=== PATIENT | female | born 1960 | race Caucasian/White ===

== ENCOUNTER 2017-02-27 21:23 | Observation (INO) | payer SELFPAY ==
[2017-02-27] MEDS ORDERED: ASPIRIN 81 MG TABLET, CHEWABLE PO ONE (22:18)
[2017-02-27] MEDS ORDERED: NITROGLYCERIN 0.4 MG/TAB 25 TAB/BOTTLE SL PRN (22:18)
--- NOTE | 2017-02-27 22:53 | RADIOLOGY REPORT (SQ) ---
EXAM DESCRIPTION: CHEST SINGLE VIEW COMPLETED DATE/TIME: 02/27/2017 10:28 pm REASON FOR STUDY: chest pain COMPARISON: None. EXAM PARAMETERS: NUMBER OF VIEWS: One view. TECHNIQUE: Single frontal radiographic view of the chest acquired. RADIATION DOSE: NA LIMITATIONS: None. FINDINGS: LUNGS AND PLEURA: No opacities, masses or pneumothorax. No pleural effusion. MEDIASTINUM AND HILAR STRUCTURES: No masses. Contour normal. HEART AND VASCULAR STRUCTURES: Heart normal in size. Normal vasculature. BONES: No acute findings. HARDWARE: None in the chest. OTHER: No other significant finding. IMPRESSION: NO ACUTE RADIOGRAPHIC FINDING IN THE CHEST. TECHNICAL DOCUMENTATION: JOB ID: [id number] [place]-72 2010 [employer]- All Rights Reserved
[2017-02-27 23:18] LABS: ABSOLUTE BASOPHILS # (AUTO) 0.1 10^3/uL (0.0-0.2); ABSOLUTE EOSINOPHILS # (AUTO) 0.2 10^3/uL (0.0-0.6); ABSOLUTE LYMPHOCYTES (AUTO) 3.4 10^3/uL (0.5-4.7); ABSOLUTE MONOCYTES (AUTO) 0.7 10^3/uL (0.1-1.4); ABSOLUTE NEUT (AUTO) 10.4 10^3/uL (1.7-8.2); BASOPHILS % (AUTO) 0.4 % (0-2); EOSINOPHILS % (AUTO) 1.3 % (0-6); HEMATOCRIT 38.3 % (36.0-47.0); HEMOGLOBIN 13.4 g/dL (12.0-15.5); HGB HCT DIFFERENCE 1.9; LYMPHOCYTES % (AUTO) 23.1 % (13-45); MEAN CORPUSCULAR HEMOGLOBIN 28.8 pg (27.0-33.4); MEAN CORPUSCULAR VOLUME 82 fl (80-97); RED BLOOD COUNT 4.66 10^6/uL (3.72-5.28); RED CELL DISTRIBUTION WIDTH 13.9 % (11.5-14.0); SEGMENTED NEUTROPHILS % (AUTO) 70.2 % (42-78); WHITE BLOOD COUNT 14.8 10^3/uL (4.0-10.5)
[2017-02-27 23:31] LABS: ALANINE AMINOTRANSFERASE 63 U/L (9-52); ALBUMIN 3.8 g/dL (3.5-5.0); ALKALINE PHOSPHATASE 170 U/L (38-126); ANION GAP 9 (5-19); ASPARTATE AMINO TRANSFERASE 121 U/L (14-36); BILIRUBIN,DIRECT 0.6 mg/dL (0.0-0.4); BILIRUBIN,TOTAL 0.9 mg/dL (0.2-1.3); BLOOD UREA NITROGEN 8 mg/dL (7-20); CALCIUM 9.5 mg/dL (8.4-10.2); CARBON DIOXIDE 27 mmol/L (22-30); CHLORIDE 107 mmol/L (98-107); CREATINE KINASE 25 U/L (30-135); CREATININE RESULT 0.69 mg/dL (0.52-1.25); GLUCOSE 100 mg/dL (75-110); POTASSIUM 3.8 mmol/L (3.6-5.0); SODIUM 143.3 mmol/L (137-145); TOTAL PROTEIN 6.2 g/dL (6.3-8.2)
[2017-02-27 23:43] LABS: CREATINE KINASE MB 0.34 ng/mL (<4.55)
[2017-02-27 23:51] LABS: TROPONIN I < 0.012 ng/mL
--- NOTE | 2017-02-27 23:56 | ER Document Report ---
ED General - General Chief Complaint: Chest Pain Stated Complaint: CHEST PAIN Time Seen by Provider: 02/27/17 22:18 Mode of Arrival: Ambulatory Information source: Patient Notes: 56 yr old female presents iwth complaints of chest pain. pt denies any cardiac history or family specific history of cardiac concerns but she does not know her mother's side. Patient notes she had chest pain about 10 or so years ago was found to have a spot on her heart but she never followed up for this. Tonight she had sudden chest pain at 8 PM rating to her neck and arm TRAVEL OUTSIDE OF THE [place] IN LAST 30 DAYS: No - HPI Onset: Just prior to arrival Onset/Duration: Sudden Quality of pain: Sharp Severity: Mild Pain Level: 1 Associated symptoms: Chest pain Exacerbated by: Denies Relieved by: Denies Similar symptoms previously: No Recently seen / treated by doctor: No Past Medical History - Social History Smoking Status: Former Smoker Cigarette use (# per day): No Chew tobacco use (# tins/day): No Smoking Education Provided: No Frequency of alcohol use: Occasional Drug Abuse: None Family History: Reviewed & Not Pertinent Patient has suicidal ideation: No Patient has homicidal ideation: No Renal/ Medical History: Denies: Hx Peritoneal Dialysis Past Surgical History: Reports: Hx Cholecystectomy Review of Systems - Review of Systems Notes: REVIEW OF SYSTEMS: CONSTITUTIONAL : Denies fever, chills, or sweats. Denies recent illness. EENT: Denies eye, ear, throat, or mouth pain or symptoms. Denies nasal or sinus congestion or discharge. Denies throat, tongue, or mouth swelling or difficulty swallowing. CARDIOVASCULAR: Admits to chest pain RESPIRATORY: Denies cough, cold, or chest congestion. Denies shortness of breath, difficulty breathing, or wheezing. GASTROINTESTINAL: Denies abdominal pain or distention. Denies nausea, vomiting , or diarrhea. Denies blood in vomitus, stools, or per rectum. Denies black, tarry stools. Denies constipation. GENITOURINARY: Denies difficulty urinating, painful urination, burning, frequency, blood in urine, or discharge. FEMALE GENITOURINARY: Denies vaginal bleeding, heavy or abnormal periods, irregular periods. Denies vaginal discharge or odor. MUSCULOSKELETAL: Denies back or neck pain or stiffness. Denies joint pain or swelling. SKIN: Denies rash, lesions or sores. HEMATOLOGIC : Denies easy bruising or bleeding. LYMPHATIC: Denies swollen, enlarged glands. NEUROLOGICAL: Denies confusion or altered mental status. Denies passing out or loss of consciousness. Denies dizziness or lightheadedness. Denies headache. Denies weakness or paralysis or loss of use of either side. Denies problems with gait or speech. Denies sensory loss, numbness, or tingling. Denies seizures. PSYCHIATRIC: Denies anxiety or stress. Denies depression, suicidal ideation, or homicidal ideation. ALL OTHER SYSTEMS REVIEWED AND NEGATIVE. PHYSICAL EXAMINATION: GENERAL: Well-appearing, well-nourished and in no acute distress. HEAD: Atraumatic, normocephalic. EYES: Pupils equal round and reactive to light, extraocular movements intact, conjunctiva are normal. ENT: Nares patent, oropharynx clear without exudates. Moist mucous membranes. NECK: Normal range of motion, supple without lymphadenopathy LUNGS: Breath sounds clear to auscultation bilaterally and equal. No wheezes rales or rhonchi. HEART: Regular rate and rhythm without murmurs ABDOMEN: Soft, nontender, nondistended abdomen. No guarding, no rebound. No masses appreciated. Female : deferred Musculoskeletal: Normal range of motion, no pitting or edema. No cyanosis. NEUROLOGICAL: Cranial nerves grossly intact. Normal speech, normal gait. Normal sensory, motor exams PSYCH: Normal mood, normal affect. SKIN: Warm, Dry, normal turgor, no rashes or lesions noted. Dictation was performed using [employer] voice recognition software Physical Exam - Vital signs Vitals: Temp Pulse Resp BP Pulse Ox 97.6 F 85 18 135/57 H 100 02/27/17 21:33 02/27/17 21:33 02/27/17 21:33 02/27/17 21:33 02/27/17 21:33 Course - Re-evaluation Re-evalutation: 02/28/17 03:37 Percent cardiac enzymes are negative, EKG noted no significant abnormality, given that the patient is having chest pain I will observe overnight for further evaluation and care - Vital Signs Vital signs: Temp Pulse Resp BP Pulse Ox 97.6 F 85 14 129/67 H 99 02/27/17 21:33 02/27/17 21:33 02/28/17 01:01 02/28/17 01:01 02/28/17 01:01 - Laboratory Result Diagrams: 02/27/17 22:55 02/27/17 22:55 Laboratory results interpreted by me: 02/27/17 02/27/17 02/27/17 22:55 22:55 22:55 WBC 14.8 H Absolute Neutrophils 10.4 H Direct Bilirubin 0.6 H AST 121 H ALT 63 H Alkaline Phosphatase 170 H Creatine Kinase 25 L Total Protein 6.2 L TSH < 0.01 L - Diagnostic Test Radiology reviewed: Image reviewed, Reports reviewed - No acute abnormality - EKG Interpretation by [facility] EKG shows normal: Sinus rhythm, [place], Intervals, QRS Complexes Discharge - Discharge Clinical Impression: Chest pain Qualifiers: Chest pain type: unspecified Qualified Code(s): R07.9 - Chest pain, unspecified Condition: Stable Disposition: ADMITTED OBSERVATION Admitting Provider: Hospitalist Unit Admitted: Telemetry
[2017-02-28] MEDS ORDERED: NITROGLYCERIN/D5W 50 MG/250 ML RTUINJ IV PRN (00:05)
[2017-02-28] MEDS ORDERED: DIAZEPAM 5 MG TABLET PO PRN ×2 (00:05→10:30)
[2017-02-28] MEDS ORDERED: TRAZODONE HCL 50 MG TABLET PO ONE (05:00)
[2017-02-28 05:50] LABS: CREATINE KINASE MB 0.31 ng/mL (<4.55)
[2017-02-28 05:54] LABS: TROPONIN I < 0.012 ng/mL
--- NOTE | 2017-02-28 06:20 | PDOC H&P ---
History of Present Illness Admission Date/PCP: 02/28/17 00:06 Patient complains of: Left-sided chest pain History of Present Illness: SHANNAN HOLLIS is a 56 year old female with a past medical history who would been her usual state of health until approximately 4 hours prior to presentation developing episodes of sharp retrosternal chest pain with radiation to the left arm associated with palpitations. She is unable to identify alleviating factors however exertion and standing makes it worse. She is referred to the hospitalist for admission. Denies nausea vomiting or shortness of breath. Patient admits heat intolerance, insomnia and uncontrolled anxiety over the last month. She denies regular medications with exception to [id number] supplements, no energy drinks or weight loss supplements. Past Medical History Cardiac Medical History: Reports: None Pulmonary Medical History: Reports: None EENT Medical History: Reports: None Neurological Medical History: Reports: None Endocrine Medical History: Reports: None Renal/ Medical History: Reports: None Malignancy Medical History: Reports: None GI Medical History: Reports: None Musculoskeltal Medical History: Reports: None Skin Medical History: Reports: None Psychiatric Medical History: Reports: None Traumatic Medical History: Reports: None Hematology: Reports: None Infectious Medical History: Reports: None Past Surgical History Past Surgical History: Reports: Cholecystectomy Social History Information Source: Patient Smoking Status: Former Smoker Frequency of Alcohol Use: None Hx Recreational Drug Use: No Drugs: None - Advance Directive Resuscitation Status: Full Code Family History Family History: Other - Parkinson's disease with Lewy body dementia Parental Family History Reviewed: Yes Children Family History Reviewed: Yes Sibling(s) Family History Reviewed.: Yes Medication/Allergy Allergies/Adverse Reactions: No Known Allergies Allergy (Unverified 02/28/17 04:00) Review of Systems Constitutional: PRESENT: as per HPI, fatigue. ABSENT: fever(s), headache(s), night sweats, weakness Eyes: ABSENT: visual disturbances Ears: ABSENT: hearing changes Cardiovascular: PRESENT: as per HPI, chest pain, palpitations Respiratory: ABSENT: cough, hemoptysis Gastrointestinal: ABSENT: abdominal pain, constipation, diarrhea, hematemesis, hematochezia, nausea, vomiting Genitourinary: ABSENT: dysuria, hematuria Musculoskeletal: PRESENT: muscle weakness. ABSENT: joint swelling Integumentary: ABSENT: rash, wounds Neurological: ABSENT: abnormal gait, abnormal speech, confusion, dizziness, focal weakness, syncope Psychiatric: PRESENT: anxiety Endocrine: PRESENT: as per HPI, heat intolerance. ABSENT: cold intolerance, polydipsia, polyphagia, polyuria Hematologic/Lymphatic: ABSENT: easy bleeding, easy bruising Physical Exam Vital Signs: Temp Pulse Resp BP Pulse Ox 98.8 F 75 15 126/58 H 99 02/28/17 04:50 02/28/17 04:50 02/28/17 04:50 02/28/17 04:50 02/28/17 04:50 Intake & Output 02/26/17 02/27/17 02/28/17 11:59 11:59 11:59 Weight 60 kg General appearance: PRESENT: cooperative, mild distress, thin Head exam: PRESENT: atraumatic, normocephalic Eye exam: PRESENT: conjunctiva pink, EOMI, PERRLA. ABSENT: scleral icterus Ear exam: PRESENT: normal external ear exam Mouth exam: PRESENT: moist, tongue midline Neck exam: ABSENT: carotid bruit, JVD, lymphadenopathy, thyromegaly Respiratory exam: PRESENT: clear to auscultation riky. ABSENT: rales, rhonchi, wheezes Cardiovascular exam: PRESENT: RRR, other - Shoulder and chest wall with reproducible pain. ABSENT: diastolic murmur, rubs, systolic murmur Pulses: PRESENT: normal dorsalis pedis pul Vascular exam: PRESENT: normal capillary refill GI/Abdominal exam: PRESENT: normal bowel sounds, soft. ABSENT: distended, guarding, mass, organolmegaly, rebound, tenderness Rectal exam: PRESENT: deferred Extremities exam: PRESENT: full ROM. ABSENT: calf tenderness, clubbing, pedal edema Neurological exam: PRESENT: alert, awake, oriented to person, oriented to time, oriented to situation, CN II-XII grossly intact Psychiatric exam: PRESENT: anxious Focused psych exam: PRESENT: restlessness Skin exam: PRESENT: dry, intact, warm. ABSENT: cyanosis, rash Results Laboratory Results: 02/28/17 04:46 CK-MB (CK-2) 0.31 Troponin I < 0.012 Impressions: Chest X-Ray 02/27/17 22:18 IMPRESSION: NO ACUTE RADIOGRAPHIC FINDING IN THE CHEST. Assessment & Plan - Diagnosis (1) Chest pain Qualifiers: Chest pain type: unspecified Qualified Code(s): R07.9 - Chest pain, unspecified Is this a current diagnosis for this admission?: Yes Plan: Atypical chest pain though the patient's pain is atypical there are multiple risk factors for coronary artery disease and subsequently will observe and evaluation of acute coronary syndrome versus coronary artery disease with anginal equivalents. Cardiac monitoring blood pressure Q6 hours ,TSH, lipid profile, serial cardiac enzymes and consider cardiac stress test (2) Anxiety Is this a current diagnosis for this admission?: Yes Plan: Trial of trazodone, evaluate thyroid function (3) Hyperthyroidism Is this a current diagnosis for this admission?: Yes Plan: Evaluate thyroid function, monitor heart rate, consider propanolol - Time Time Spent: 50 to 70 Minutes - Inpatient Certification Medical Necessity: Need Close Monitoring Due to Risk of Patient Decompensation
--- NOTE | 2017-02-28 08:09 | EKG REPORT ---
SEVERITY:- ABNORMAL ECG - SINUS RHYTHM BRIANNA, CONSIDER BIATRIAL ABNORMALITIES : Confirmed by: Mason Denise MD 28-Feb-2017 08:09:31
[2017-02-28] MEDS ORDERED: DOCUSATE SODIUM 100 MG CAPSULE PO SCH (10:00)
[2017-02-28 11:48] LABS: CREATINE KINASE MB 0.34 ng/mL (<4.55)
[2017-02-28 11:51] LABS: TROPONIN I < 0.012 ng/mL
[2017-02-28] MEDS ORDERED: REGADENOSON INJ 0.4 MG/5 ML DISP.SYRIN IV ONE (13:34)
[2017-02-28] MEDS ORDERED: AMINOPHYLLINE INJ/PF 250 MG/10 ML SDV IV ONE (13:34)
--- NOTE | 2017-02-28 13:36 | DRAGON STRESS TEST REPORT ---
INTRAVENOUS LEXISCAN CARDIOLITE STRESS TEST USING SINGLE PHOTON EMMISION COMPUTERIZED TOMOGRAPHIC. DATE OF PROCEDURE: February 28, 2017 INDICATION : Chest pain CARDIAC RISK FACTORS: Dyslipidemia RESTING EKG: Sinus rhythm, no baseline ST-T wave changes noted STRESS EKG: No significant changes noted with LexiScan bolus REASON FOR TERMINATION: Protocol. PROCEDURE REPORT: Baseline heart rate 72 beats per minute with blood pressure of 142/82. Patient had no significant complaints. Heart rate at 2 minutes post bolus 97 with a blood pressure of 150/72. 3 minutes post bolus heart rate 94 with blood pressure of 140/78. No significant EKG changes were noted. Patient had no significant complaints during the procedure or postprocedure. Patient injected with Aminophyllin 75 mg at 3 minutes or later after Lexiscan bolus. CONCLUSIONS: Normal EKG and hemodynamic response to IV LexiScan. NUCLEAR DATA: At rest the patient was given 9.90 millicuries of technetium 99 sestamibi injected intravenously. As per protocol rest gated SPECT images were obtained. Subsequently the patient was given intravenous LexiScan at a dose of 0.4 mg in 5 mL intravenously, followed by flush with normal saline. Subsequently the stress dose of 31.2 millicuries of technetium 99 sestamibi was injected intravenously. As per protocol stress gated images were obtained. NUCLEAR INTERPRETATION: Both raw and processed data were used for interpretation. Visual, qualitative, computer-generated quantitative data was used. There was good myocardial uptake of technetium compound. Motion artifact and soft tissue attenuations were noted. Increased visceral uptake was noted. No definitive areas of transient perfusion defect noted. No definitive areas of fixed perfusion defect or scars noted. EKG gated imaging showed LV EF at 67 %, rest and stress gated EF similar visually. T. I D. ratio was 1.07. Lung heart ratio noted to be within normal limits 0.30. No significant extracardiac and abnormal radiotracer activities were noted. RV free wall uptake was noted to be WNL. IMPRESSION: Also refer to comments under nuclear interpretation. Also test results needs to be interpreted in the context of pretest probability. 1. There is no definitive scintigraphic evidence of LexiScan induced myocardial ischemia. 2. There is no definitive scintigraphic evidence of myocardial infarction/scar. 3. EKG gated imaging shows left ventricular ejection fraction of approximately 67 %. 4. Clinical correlation requested as occasionally single vessel disease or balanced ischemia could be missed. In approximately 10% of the cases Lexiscan may not cause adequate vasodilatory stress. RECOMMENDATIONS: Aggressive risk factor modification, medical therapy. Clinical correlation with echocardiogram derived ejection fraction. Inability to exercise by itself can lead to increased cardiovascular event risks. Consider cardiology consultation and or follow-up if clinically indicated. I AM AVAILABLE FOR CARDIOLOGY CONSULTATION AND FOLLOWUP IF REQUESTED BY PMD Irma Montalvo M.D., [employer], Board certified in cardiovascular diseases, Nuclear cardiology, Echocardiography Cardiac CT and cardiac MRI Ph. [phone] [facility]
--- NOTE | 2017-02-28 14:26 | PDOC DISCHARGE SUMMARY ---
General - Admit/Disc Date/PCP Admission Date/Primary Care Provider: 02/28/17 00:06 Discharge Date: 02/28/17 - Discharge Diagnosis (1) Anxiety Is this a current diagnosis for this admission?: Yes (2) Chest pain Is this a current diagnosis for this admission?: Yes (3) Hyperthyroidism Is this a current diagnosis for this admission?: Yes - Additional Information Resuscitation Status: Full Code Discharge Diet: As Tolerated Discharge Activity: Activity As Tolerated Home Medications: Ascorbic Acid [Vitamin C 500 mg Tablet] 500 mg PO DAILY 02/28/17 Cranberry Conc/C/Bacill Coag [AZO Cranberry Tablet] 1 each PO DAILY 02/28/17 Folic Acid [Folvite 1 mg Tablet] 1 mg PO DAILY 02/28/17 Multivitamin [Tab-A-Aby (Multiple Vitamin) Tablet] 1 tab PO DAILY 02/28/17 History of Present Illness History of Present Illness: SHANNAN HOLLIS is a 56 year old female Presented complaining of left-sided chest pain going to the left arm. Patient was admitted under the hospitalist service for further workup Hospital Course Hospital Course: .Chest pain resolved without any major further intervention. Of concern is that patient TSH is undetectable. Patient has been advised as to follow-up with her PCP for the management and possibly referral for the treatment of hyperthyroidism. Patient also expressed that she had been told that her liver enzymes are elevated however may be due to hyperthyroidism since may induce fatty liver disease. Patient underwent nuclear stress test which was normal. Since patient had achieved maximum benefit of hospitalization stay prompted to discharge under stable condition Physical Exam Vital Signs: Temp Pulse Resp BP Pulse Ox 98.8 F 72 18 132/69 H 100 02/28/17 11:54 02/28/17 11:54 02/28/17 11:54 02/28/17 11:54 02/28/17 11:54 Intake & Output 02/27/17 02/28/17 03/01/17 06:59 06:59 06:59 Weight 60 kg General appearance: PRESENT: no acute distress, cooperative, thin Head exam: PRESENT: atraumatic, normocephalic Eye exam: PRESENT: EOMI, PERRLA Ear exam: PRESENT: normal external ear exam Mouth exam: PRESENT: moist, neck supple Neck exam: PRESENT: full ROM. ABSENT: JVD, tenderness Respiratory exam: PRESENT: clear to auscultation riky Cardiovascular exam: PRESENT: RRR. ABSENT: diastolic murmur, gallop, systolic murmur Vascular exam: PRESENT: normal capillary refill GI/Abdominal exam: PRESENT: normal bowel sounds, soft. ABSENT: tenderness Extremities exam: PRESENT: full ROM. ABSENT: calf tenderness Neurological exam: PRESENT: alert, oriented to person, oriented to place, oriented to time Results Laboratory Results: 02/28/17 04:46 Free T4 1.39 02/28/17 02/28/17 04:46 10:43 CK-MB (CK-2) 0.31 0.34 Troponin I < 0.012 < 0.012 Impressions: Chest X-Ray 02/27/17 22:18 IMPRESSION: NO ACUTE RADIOGRAPHIC FINDING IN THE CHEST.
[2017-02-28 15:14] VITALS: BP 117/54
[2017-02-28] MEDS ORDERED: INFLUENZA ADLT QUAD (36MOS+) 2017-18 VAC 0.5 ML SYR IM PRN (15:23)
[2017-02-28] MEDS ORDERED: TRAZODONE HCL 50 MG TABLET PO SCH (22:00)
[2017-02-28] MEDS ORDERED: ATORVASTATIN CALCIUM 80 MG TABLET PO SCH (22:00)
== END 2017-02-28 16:00 | disposition home or self-care (01) ==
LOC: ER 21:23 → EH 02-28 00:06 → UNDOADMOB 02-28 00:23 → EH 02-28 00:23 → 4N 02-28 02:15
PROVIDERS: ADMIT Internal Medicine; ATTEND Internal Medicine
PROC: 3E0234Z Introduction of Serum, Toxoid and Vaccine into Muscle, Percutaneous Approach (ICD-10-PCS; principal; 2017-02-28)
DX: R07.89 Other chest pain (principal); F41.9 Anxiety disorder, unspecified; E05.90 Thyrotoxicosis, unspecified without thyrotoxic crisis or storm; G47.00 Insomnia, unspecified; M62.81 Muscle weakness (generalized); R00.2 Palpitations; M25.519 Pain in unspecified shoulder; Z90.49 Acquired absence of other specified parts of digestive tract; Z87.891 Personal history of nicotine dependence; Z23 Encounter for immunization
CPT/HCPCS: 93005; 99285; 36415 ×2; 84439; 82553 ×2; 82550; 84443; 85025; 80053; 84484 ×2; 80074; 93017; 71010; 78452; 90686; 93010; A9500; J2785; J0280; Q9969

== ENCOUNTER → 2017-04-04 | Outpatient (CLI) | payer OTHER ==
[2017-04-04 09:24] LABS: FREE T3 5.47 pg/mL (2.77-5.27)
[2017-04-04 09:41] LABS: THYROID STIMULATING HORMONE < 0.01 uIU/mL (0.47-4.68)
[2017-04-05 08:41] LABS: THYROID PEROXIDASE (TPO) AB 9 IU/mL (0-34)
[2017-04-05 09:33] LABS: THYROGLOBULIN AB <1.0 IU/mL (0.0-0.9)
== END ==
LOC: CCC 07:34
DX: E05.90 Thyrotoxicosis, unspecified without thyrotoxic crisis or storm (principal)
CPT/HCPCS: 36415; 84439; 84443; 84481; 86376

== ENCOUNTER → 2017-05-22 | Outpatient (CLI) | payer OTHER | LOC: CCC 12:00 | DX: R19.7 Diarrhea, unspecified (principal); E05.90 Thyrotoxicosis, unspecified without thyrotoxic crisis or storm | CPT/HCPCS: 36415; 84443; 87045; 87205; 87493; 89055 ==

== ENCOUNTER → 2017-07-04 | Outpatient (CLI) | payer OTHER | LOC: CCC 10:07 | DX: E06.9 Thyroiditis, unspecified (principal) | CPT/HCPCS: 36415; 84443 ==